=== PATIENT | male | born 1955 | race American Indian/Alaskan Native ===

== ENCOUNTER 2017-07-24 22:54 | Emergency (ER) | payer MEDICARE, MEDICAID ==
[2017-07-24 22:54] VITALS: BMI 25.8
[2017-07-24 23:02] VITALS: BP 94/56; TEMP 98.2
[2017-07-24 23:19] VITALS: O2SAT 98
[2017-07-24] MEDS ORDERED: Albuterol-Ipratrop 3 mg / 0.5 (3 ml) UD INH STA (23:24)
--- NOTE | 2017-07-24 23:25 | ED PDOC ---
HPI: SOB/CHF/COPD Time Seen by Provider: 07/24/17 23:05 Chief Complaint (Nursing): Shortness Of Breath Chief Complaint (Provider): Shortness of Breath History Per: Patient History/Exam Limitations: no limitations Onset/Duration Of Symptoms: Other (x1 week) Current Symptoms Are (Timing): Still Present Initiating Event: Upper Respiratory Illness Associated Symptoms: denies: Fever, Chest Pain, Productive Cough Recently: Seen In ED Additional Complaint(s): 62 year old female presents to ED with complaints of SOB x1 week and has a past medical history of COPD, DM, HIV, and HTN. (+) dry cough x6 months. (-) fever or chest pain. Patient notes that he has been seen multiple times [place] [facility] [place] most recently at [facility] x3 days ago for the same complaint. States his CD4 count is 625. PCP: None Past Medical History Reviewed: Historical Data, Nursing Documentation, Vital Signs Vital Signs: Last Vital Signs Temp 98.2 F 07/24/17 23:01 Pulse 92 H 07/24/17 23:43 Resp 20 07/24/17 23:40 BP 94/56 L 07/24/17 23:01 Pulse Ox 98 07/24/17 23:57 - Medical History PMH: Anxiety, Arthritis, Asthma, Back Problems, Bronchitis, COPD (on O2 via NC @ 2lpm), Diabetes (w/ Neuropathy), Emphysema, Hepatitis (C), HIV, HTN, Hypercholesterolemia, Hyperlipidemia, Pancreatitis, Pneumonia, Sleep Apnea Denies: Chronic Kidney Disease - Family History Family History: States: Unknown Family Hx - Social History Drugs: Cocaine - Immunization History Hx Tetanus Toxoid Vaccination: No Hx Influenza Vaccination: No Hx Pneumococcal Vaccination: No - Home Medications Home Medications: Ambulatory Orders Medication Instructions Recorded Abacavir [Ziagen] 300 mg PO BID #10 tab 11/22/16 Albuterol/Ipratropium [Duoneb 3 3 ml IH Q6 #3 neb 11/22/16 mg/0.5 mg (3 ml) UD] Atovaquone [Mepron] 750 mg PO BID #10 packet 11/22/16 Budesonide/Formoterol Fumarate 1 aer IH BID #1 aer 11/22/16 [Symbicort 160-4.5 Mcg Inhaler] Famotidine [Pepcid] 20 mg PO DAILY #5 tab 11/22/16 Furosemide [Lasix] 20 mg PO DAILY #5 tab 11/22/16 Lactobacillus Acidophilus [Bacid 1 cap PO BID #10 cap 11/22/16 Acidophilus] Spironolactone [Aldactone] 25 mg PO DAILY #7 tab 11/22/16 amLODIPine [Norvasc] 5 mg PO DAILY #7 tab 11/22/16 Insulin Aspart, Recombinant 30 unit SQ BID 12/16/16 [Novolog] Valsartan [Diovan] 1 tab PO DAILY 12/16/16 Furosemide [Lasix] 20 mg PO DAILY tab 07/22/17 Losartan [Cozaar] 25 mg PO DAILY tab 07/22/17 Methylprednisolone [Medrol Dose 4 mg PO DAILY #21 mg 07/22/17 Pack (21 tabs)] Albuterol HFA [Ventolin HFA 90 1 puff IH PRN PRN #1 inhaler 07/25/17 mcg/actuation (8 g)] Levofloxacin [Levaquin] 500 mg PO DAILY #7 tablet 07/25/17 PrednisoLONE [PrednisoLONE Oral 10 ml PO DAILY #5 dose 07/25/17 Soln] Prednisone 50 mg PO DAILY #5 tablet 07/25/17 - Allergies Allergies/Adverse Reactions: Allergies Allergy/AdvReac Type Severity Reaction Status Date / Time No Known Allergies Allergy Verified 02/04/17 16:23 Curb-65 Severity Score - CURB-65 Severity Score Confusion: No Curb-65 Score: 0 Percentage 30-day mortality: 0.6% Wells Criteria for PE - Wells Criteria for Pulmonary Embolism Heart Rate >100: Yes Total Score: 1.5 Review of Systems ROS Statement: Except As Marked, All Systems Reviewed And Found Negative Cardiovascular: Negative for: Chest Pain Respiratory: Positive for: Cough, Shortness of Breath. Negative for: Sputum Physical Exam - Reviewed Nursing Documentation Reviewed: Yes Vital Signs Reviewed: Yes - Physical Exam Appears: Positive for: Non-toxic, No Acute Distress Skin: Positive for: Normal Color, Warm, Dry Eye Exam: Positive for: Normal appearance ENT: Positive for: Normal ENT Inspection Neck: Positive for: Normal Cardiovascular/Chest: Positive for: Regular Rate, Rhythm. Negative for: Murmur Respiratory: Positive for: Wheezing (minimal bilateral expiratory wheezing). Negative for: Normal Breath Sounds, Respiratory Distress Extremity: Positive for: Normal ROM. Negative for: Deformity Neurologic/Psych: Positive for: Alert, Oriented - Laboratory Results Result Diagrams: 07/25/17 00:48 07/25/17 00:48 - ECG ECG Rhythm: Positive for: Sinus Rhythm. Negative for: ST/T Changes Rate: 92 O2 Sat by Pulse Oximetry: 98 (RA) Pulse Ox Interpretation: Normal Medical Decision Making Medical Decision Makin Initial impression: dyspnea DDx: COPD, bronchitis, PNA Initial plan: * EKG * Labs * PTT/PT * CXR * Duonebs 3mL INH * Solumedrol 125mg IVP * BCx * Peak flow/ pre/post Tx * Re-eval 2315 Upon review of old notes, patient was discharged 2 days ago. Dx: COPD, drug abuse, HIV. 0000 Patient signed out from me to Dr. Rothman pending CXR and labs. Scribe Attestation: Documented by Yasmine Lopez acting as a scribe for Chloe Goyal MD. Scribe Attestation: All medical record entries made by the Scribe were at my direction and personally dictated by me. I have reviewed the chart and agree that the record accurately reflects my personal performance of the history, physical exam, medical decision making, and the department course for this patient. I have also personally directed, reviewed, and agree with the discharge instructions and disposition. Disposition - Clinical Impression Clinical Impression: COPD (chronic obstructive pulmonary disease), Substance abuse, Drug abuse and dependence, Cocaine abuse, Heroin abuse - Disposition Referrals: [facility] [Outside] Disposition: Transfer of Care Disposition Time: 00:00 Condition: STABLE Additional Instructions: Follow up with your PCP in 2-3 days. Prescriptions: Albuterol HFA [Ventolin HFA 90 mcg/actuation (8 g)] 1 puff IH PRN PRN #1 inhaler PRN Reason: Shortness Of Breath Levofloxacin [Levaquin] 500 mg PO DAILY #7 tablet PrednisoLONE [PrednisoLONE Oral Soln] 10 ml PO DAILY #5 dose Prednisone 50 mg PO DAILY #5 tablet Instructions: COPD (Chronic Obstructive Pulmonary Disease) (ED) Patient Signed Over To: Jose Rothman Handoff Comments: pending CXR and labs
[2017-07-24] MEDS ORDERED: Albuterol-Ipratrop 3 mg / 0.5 (3 ml) UD ONE (23:28)
[2017-07-24 23:41] VITALS: PULSE 92
--- NOTE | 2017-07-24 23:57 | ED PDOC ---
- ECG O2 Sat by Pulse Oximetry: 98 (RA) Medical Decision Making Medical Decision Makin Patient signed out to me from Dr. Goyal pending CXR and lab work. Scribe Attestation: Documented by Yasmine Lopez acting as a scribe for Jose Rothman MD. Scribe Attestation: All medical record entries made by the Scribe were at my direction and personally dictated by me. I have reviewed the chart and agree that the record accurately reflects my personal performance of the history, physical exam, medical decision making, and the department course for this patient. I have also personally directed, reviewed, and agree with the discharge instructions and disposition. Disposition - Disposition Condition: FAIR Forms: [employer] ([employer])
[2017-07-25 00:52] LABS: BASO % 0.1 % (0.0-2.0); EOS # 0.1 K/uL (0.0-0.7); EOS % 2.3 % (0.0-4.0); HEMATOCRIT 35.2 % (35.0-51.0); LYMPH # 1.7 K/uL (1.0-4.3); LYMPH % 26.7 % (20.0-40.0); MEAN CELL VOLUME 92.3 fl (80.0-94.0); MEAN CORPUSCULAR HEMOGLOBIN 28.7 pg (27.0-31.0); MEAN CORPUSCULAR HGB CONC 31.1 g/dL (33.0-37.0); MEAN PLATELET VOLUME 8.2 fl (7.2-11.7); MONO # 0.5 K/uL (0.0-0.8); MONO % 7.9 % (0.0-10.0); NEUT # 4.1 K/uL (1.8-7.0); NRBC % 0.1 % (0.0-0.0); RED CELL DISTRIBUTION WIDTH 18.3 % (11.5-14.5); WHITE BLOOD COUNT 6.5 K/uL (4.8-10.8)
[2017-07-25 01:00] LABS: ALB/GLOB RATIO 1.3 (1.0-2.1); ALKALINE PHOSPHATASE 57 U/L (38-126); ALT/SGPT 23 U/L (21-72); AST/SGOT 24 U/L (17-59); BILIRUBIN,TOTAL 0.2 mg/dl (0.2-1.3); BLOOD UREA NITROGEN 27 mg/dl (9-20); CALCIUM 8.7 mg/dL (8.4-10.2); CARBON DIOXIDE 30 mmol/L (22-30); CHLORIDE 99 mmol/L (98-107); GFR AFRICAN-AMERICAN > 60; GLUCOSE,RANDOM 69 mg/dL (75-110); POTASSIUM 3.2 MMOL/L (3.6-5.0); SODIUM 140 mmol/l (132-148); TOTAL PROTEIN 7.1 G/DL (6.3-8.2)
[2017-07-25] MEDS ORDERED: Potassium Chloride 20 mEq ER Tab PO ONE (01:04)
[2017-07-25 01:17] LABS: PARTIAL THROMBOPLASTIN TIME 27.4 Seconds (25.6-37.1)
[2017-07-25 02:54] VITALS: RESP 20
--- NOTE | 2017-07-25 05:57 | RAD ---
HISTORY: Dyspnea COMPARISON: No prior. FINDINGS: LUNGS: No active pulmonary disease. PLEURA: No significant pleural effusion identified, no pneumothorax apparent. CARDIOVASCULAR: Normal. OSSEOUS STRUCTURES: No significant abnormalities. VISUALIZED UPPER ABDOMEN: Normal. OTHER FINDINGS: None. IMPRESSION: No active disease. Concordant results with the preliminary interpretation rendered by the emergency department physician procedure.
--- NOTE | 2017-07-25 12:04 | CARD ---
APPROVED REPORT EKG Measurement Heart [id number] <Conclusion> Normal sinus rhythm Normal ECG
== END 2017-07-25 02:40 | disposition home or self-care (01) ==
LOC: H.ER 22:54
DX: J44.0 Chronic obstructive pulmonary disease with (acute) lower respiratory infection (principal); F11.10 Opioid abuse, uncomplicated; E11.40 Type 2 diabetes mellitus with diabetic neuropathy, unspecified; F14.10 Cocaine abuse, uncomplicated; I10 Essential (primary) hypertension; Z79.4 Long term (current) use of insulin; Z99.81 Dependence on supplemental oxygen
CPT/HCPCS: 71010; 80053; 85025; 85610; 85730; 87040; 93005; 96374; 99284; J2930